=== PATIENT | female | born 1950 | race Caucasian/White ===

== ENCOUNTER 2018-05-09 02:23 | Day surgery (SDC) | payer BC ==
[~2018-05-09 02:23] MED LIST: AVANDAMET; CELE200 PO; DESL5 PO; ESOM20 PO; ESTR1; ESTR2 PO; GLIM2 PO; HYDACE5 PO; IBUP600 PO; LEVSOD125; LEVSOD137 PO; LORA10ER; METO50ER PO; PIRO10
== END 2018-05-09 22:39 | disposition home or self-care (01) ==
LOC: MOI MAM 02:23
DX: N60.31 Fibrosclerosis of right breast (principal)
CPT/HCPCS: 19083; 77065; A4648; G0279

== ENCOUNTER 2020-07-05 07:41 | Day surgery (SDC) | payer MEDICARE ==
[~2020-07-05 07:41] MED LIST changes: +ATOR80; +ATOR80 PO; +Aspir 8181 MG PO; +BASAGLAR K100 UNIT/1 SC; +EUTHYROX125 MCG PO; +FURO40 PO; +GEMF600 PO; +HUMALOG KW100 UNIT/1 SQ; +Isosorbide Mono30 MG PO; +KRILL OIL500 MG PO; +LISI5 PO; +MELO7.5 PO; +METF500 PO; +METO25ER PO; +OXYB5 PO; +POTA8 PO; +TYLENOL ARTHRITIS PO; +VERA80 PO; +ZYRTEC10 M2 PO
--- NOTE | 2020-07-05 10:31 | NUR ---
07/05/20 1031 Doretha Jerry PT DENIES NAUSEA AND IS TOLERATING PO FLUIDS AND SNACKS WELL. VSS. PT COMPLAINS OF PAIN 07/04. RN TREATING WITH IV PAIN MEDICATION AND PO PAIN MEDICATION PER DR'S ORDERS. WARM BLANKETS PROVIDED. CALL LIGHT IN REACH. POLAR UNIT ON AND RUNNING. OP LIMB IS ELEVATED WITH PILLOWS. AT CHAIRSIDE.
== END 2020-07-05 11:00 | disposition home or self-care (01) ==
LOC: ORSCSDS 07:41
PROVIDERS: Orthopaedic Surgery
PROC: 0SBD4ZZ Excision of Left Knee Joint, Percutaneous Endoscopic Approach (ICD-10-PCS; principal; 2020-07-05 08:45)
DX: S83.232D Complex tear of medial meniscus, current injury, left knee, subsequent encounter (principal); E11.9 Type 2 diabetes mellitus without complications; I10 Essential (primary) hypertension; E03.9 Hypothyroidism, unspecified; Z79.4 Long term (current) use of insulin; Z79.899 Other long term (current) drug therapy
CPT/HCPCS: 82947; J0171; J0690; J1100; J1885; J2250; J2405; J2704; J3010; J7120